=== PATIENT | male | born 1960 | race Caucasian/White ===

== ENCOUNTER 2019-10-16 19:23 | Inpatient (IN) | payer MEDICAID ==
[~2019-10-16] VITALS: Ht 175.3 cm; Wt 74.8 kg
[2019-10-16 19:28] VITALS: Ht 175.3 cm; Wt 74.8 kg
[2019-10-16 20:16] LABS: BASOPHIL % 0.4 % (0-2)
[2019-10-16 20:17] LABS: PLATELET COUNT 88 x10^3mcL (130-400); RED CELL DISTRIBUTION WIDTH 15.7 % (11.5-14.5)
[2019-10-16 20:28] LABS: ALBUMIN 4.5 g/dL (3.4-5.0); ALKALINE PHOSPHATASE 141 U/L (46-116); ALT/SGPT 169 U/L (16-63); AST/SGOT 198 U/L (15-37); BILIRUBIN TOTAL 3.43 mg/dL (0.20-1.00); CARBON DIOXIDE 39.9 mmol/L (21-32); CHLORIDE SERUM 74 mmol/L (98-107); CREATININE SERUM 1.7 mg/dL (0.7-1.3); GFR1 45 mL/min; GLUCOSE SERUM 103 mg/dL (74-106); POTASSIUM SERUM 3.8 mmol/L (3.5-5.1)
[2019-10-16 20:31] LABS: SODIUM SERUM 124 mmol/L (136-145)
[2019-10-16 21:31] LABS: AMYLASE 92 U/L (25-115); LIPASE 325 IU/L (73-393)
[2019-10-17] LABS: microscopic required? YES; urine erythrocyte NEGATIVE (NEGATIVE)
[2019-10-17 00:16] LABS: AMPHETAMINE QUAL UR NONE DETECTED (See below)
[2019-10-17 05:07] LABS: BASOPHIL % 1.1 % (0-2)
[2019-10-17 05:12] LABS: PLATELET COUNT 79 x10^3mcL (130-400)
[2019-10-17 05:13] LABS: CALCIUM 8.4 mg/dL (8.5-10.1); CARBON DIOXIDE 37.5 mmol/L (21-32); CHLORIDE SERUM 87 mmol/L (98-107); CREATININE SERUM 1.1 mg/dL (0.7-1.3); GFR1 > 60 mL/min; GLUCOSE SERUM 101 mg/dL (74-106); MAGNESIUM 3.1 mg/dL (1.8-2.4); PHOSPHOROUS 2.7 mg/dL (2.5-4.9); SODIUM SERUM 131 mmol/L (136-145)
[2019-10-17 05:16] LABS: POTASSIUM SERUM 2.7 mmol/L (3.5-5.1)
[2019-10-17 05:29] VITALS: BP 133/71
[2019-10-17 07:42] VITALS: BP 130/81
[2019-10-17 11:53] VITALS: BP 128/81
[2019-10-17 16:32] VITALS: BP 119/63
[2019-10-17 21:30] VITALS: BP 115/75
[2019-10-18 06:28] VITALS: BP 125/74
[2019-10-18 06:48] LABS: BASOPHIL % 0.1 % (0-2)
[2019-10-18 07:08] LABS: CALCIUM 8.5 mg/dL (8.5-10.1); CARBON DIOXIDE 30.7 mmol/L (21-32); CHLORIDE SERUM 99 mmol/L (98-107); CREATININE SERUM 0.8 mg/dL (0.7-1.3); GFR1 > 60 mL/min; GLUCOSE SERUM 99 mg/dL (74-106); MAGNESIUM 2.4 mg/dL (1.8-2.4); POTASSIUM SERUM 3.1 mmol/L (3.5-5.1); SODIUM SERUM 135 mmol/L (136-145)
[2019-10-18 08:35] VITALS: BP 127/71
[2019-10-18 09:33] LABS: PLATELET COUNT 68 x10^3mcL (130-400); RED CELL DISTRIBUTION WIDTH 15.4 % (11.5-14.5)
[2019-10-18 10:20] VITALS: BP 119/71
[2019-10-18] MEDS ORDERED: PRILOSEC OTC20 M1 PO (10:36)
[2019-10-18 12:08] VITALS: BP 130/94
== END 2019-10-18 16:20 | disposition home or self-care (01) | DRG 243 ==
LOC: EDBD 19:23 → ED 19:23 → DU 21:10
PROVIDERS: Emergency Medicine; Internal Medicine; Internal Medicine Gastroenterology; ADMIT Family Medicine
PROC: 0DB68ZX Excision of Stomach, Via Natural or Artificial Opening Endoscopic, Diagnostic (ICD-10-PCS; principal; 2019-10-18 08:00)
DX: K22.10 Ulcer of esophagus without bleeding (principal); N17.0 Acute kidney failure with tubular necrosis; K21.9 Gastro-esophageal reflux disease without esophagitis; F10.239 Alcohol dependence with withdrawal, unspecified; E87.1 Hypo-osmolality and hyponatremia; G40.509 Epileptic seizures related to external causes, not intractable, without status epilepticus; D69.59 Other secondary thrombocytopenia; K70.9 Alcoholic liver disease, unspecified; F17.210 Nicotine dependence, cigarettes, uncomplicated; Z79.899 Other long term (current) drug therapy
CPT/HCPCS: 43235; 99406; C9113; G0378; G0480; J1200; J1610; J2060; J2250; J2270; J2310; J2405; J3010; J3411; J3475; J3480; J3490; J7030; Q0092